=== PATIENT | female | born 1985 | race Caucasian/White ===

== ENCOUNTER 2021-09-02 18:12 | Emergency (ER) | payer BC ==
[~2021-09-02 18:12] MED LIST: BACTROBAN OINT22 GM TOP; CHRONULAC20 GM/30 M PO; CLEOCIN HCL300 MG PO; FLONASE 0.05% N16 GM; HYDROCODON-ACE1 EAC4 PO; IBUPROFEN800 MG PO; KEFLEX CAP 500500 MG PO; LORATADINE10 MG PO
[2021-09-02 18:52] LABS: HEMOGLOBIN 13.1 gm/dl (12.3-15.3); RED BLOOD COUNT 4.34 M/UL (4.00-5.10); WHITE BLOOD COUNT 9.1 K/UL (4.5-11.0)
[2021-09-02 19:17] LABS: BUN/CREATININE RATIO 14 (0-10)
== END 2021-09-03 00:55 | disposition home or self-care (01) ==
LOC: ER1 18:12
PROVIDERS: Emergency Medicine
DX: B34.9 Viral infection, unspecified (principal); I95.9 Hypotension, unspecified; F17.210 Nicotine dependence, cigarettes, uncomplicated; Z20.822 Contact with and (suspected) exposure to COVID-19
CPT/HCPCS: 0240U; 71045; 80053; 81001; 82550; 82553; 83690; 84484; 85025; 93005; 99284